=== PATIENT | male | born 1975 | race Caucasian/White ===

== ENCOUNTER → 2017-12-28 10:23 | Outpatient (CLI) | payer OTHER, SELFPAY ==
[2017-12-28 14:35] LABS: COMMENT (LAB VIEW ONLY) 129.17 mg/dL; Microalb ug/mg Crea 16.7 ug/mg Cr
== END ==
PROVIDERS: PCP Nurse Practitioner; Visit Provider Nurse Practitioner
DX: E11.9 Type 2 diabetes mellitus without complications (principal)
CPT/HCPCS: 82043; 82570

== ENCOUNTER → 2018-03-28 08:53 | Outpatient (BNVA) | payer OTHER, SELFPAY | PROVIDERS: PCP Nurse Practitioner; Visit Provider Psychiatry & Neurology Neurology | DX: G40.909 Epilepsy, unspecified, not intractable, without status epilepticus (principal); I10 Essential (primary) hypertension; E11.9 Type 2 diabetes mellitus without complications; Z79.84 Long term (current) use of oral hypoglycemic drugs | CPT/HCPCS: 99214 ==

== ENCOUNTER 2018-07-15 08:36 | Outpatient (CLI) | payer OTHER, SELFPAY ==
[2018-07-15 09:18] LABS: Abs Immature Grans 0.03 k/cumm (0.0-0.09); Absolute Basophil Count 0.05 k/cumm (0.0-0.2); Absolute Eosinophil Count 0.16 k/cumm (0.0-0.7); Absolute Lymphocyte Count 2.28 k/cumm (1.2-3.4); Absolute Neutrophil Count 4.81 k/cumm (1.2-6.7); Basophils % 0.6; HCT 40.3 % (40.0-50.0); HGB 14.1 g/dL (13.5-17.5); Immature Grans % 0.4; Lymphocytes % 28.8; Mean Corpuscular Hemoglobin 30.9 pg (27.0-33.0); Mean Corpuscular Volume 88.4 fL (80-95); Mean Platelet Volume 10.1 fL (8.0-11.0); Monocytes % 7.6; Neutrophils % 60.6; Platelet Count 232 x1000/uL (130-400); RBC 4.56 m/cumm (4.50-6.00); RBC Distribution Width 13.1 % (11.8-14.1); White Blood Cell Count 7.93 k/cumm (4.4-10.8)
[2018-07-15 10:17] LABS: ALT 33 U/L (12-78); AST 22 U/L (15-37); Albumin 4.4 g/dL (3.4-5.0); Alkaline Phosphatase 52 U/L (46-116); BUN 24 mg/dL (7-18); Bilirubin, Total 0.3 mg/dL (0.2-1.0); CREATININE 1.21 mg/dL (0.70-1.30); Calcium 9.3 mg/dL (8.5-10.1); Chloride 99 mmol/L (98-107); Glucose 134 mg/dL (70-100); Potassium 4.8 mmol/L (3.5-5.1); Sodium 138 mmol/L (136-145); Total Protein 7.3 g/dL (6.4-8.2)
[2018-07-15 14:29] LABS: Cholesterol 215 mg/dL (50-200); HDL Cholesterol 47 mg/dL (40-60); LDL CHOLESTEROL 126 mg/dL (<100); Triglyceride 169 mg/dL (30-150)
[2018-07-15 14:56] LABS: COMMENT (LAB VIEW ONLY) 177.71 mg/dL; Microalb ug/mg Crea 6.2 ug/mg Cr
== END 2018-07-15 08:56 ==
PROVIDERS: PCP Nurse Practitioner; Visit Provider Nurse Practitioner
DX: E11.40 Type 2 diabetes mellitus with diabetic neuropathy, unspecified (principal); E78.5 Hyperlipidemia, unspecified; I10 Essential (primary) hypertension
CPT/HCPCS: 36415; 80053; 80061; 83721; 82043; 82570; 85025

== ENCOUNTER → 2019-03-27 09:17 | Outpatient (BNVA) | payer OTHER, SELFPAY | PROVIDERS: PCP Nurse Practitioner; Referring Provider Nurse Practitioner; Visit Provider Psychiatry & Neurology Neurology | DX: G40.909 Epilepsy, unspecified, not intractable, without status epilepticus (principal); H54.7 Unspecified visual loss; E11.9 Type 2 diabetes mellitus without complications; Z79.84 Long term (current) use of oral hypoglycemic drugs; I10 Essential (primary) hypertension | CPT/HCPCS: 99213 ==

== ENCOUNTER 2020-01-12 01:57 | Outpatient (CLI) | payer OTHER, SELFPAY ==
[2020-01-12 08:23] LABS: Hemoglobin A1C 6.4 % (<5.7)
[2020-01-12 08:24] LABS: ALT 32 U/L (16-63); AST 15 U/L (15-37); Albumin 4.3 g/dL (3.4-5.0); Alkaline Phosphatase 43 U/L (46-116); Anion Gap 6.7 mmol/L (3-11); BUN 43 mg/dL (7-18); Bilirubin, Total 0.2 mg/dL (0.2-1.0); CO2 29.3 mmol/L (21.0-32.0); CREATININE 1.45 mg/dL (0.70-1.30); Calcium 9.3 mg/dL (8.5-10.1); Calculated LDL 105 mg/dL (<100); Chloride 99 mmol/L (98-107); Cholesterol 202 mg/dL (<200); Estimated GFR 52.63 (mL/min/1.73m2); Glucose 260 mg/dL (74-106); HDL Cholesterol 42 mg/dL (40-60); Potassium 4.6 mmol/L (3.5-5.1); Sodium 135 mmol/L (136-145); Total Protein 7.2 g/dL (6.4-8.2); Triglyceride 279 mg/dL (<150)
== END 2020-01-12 02:17 ==
PROVIDERS: PCP Nurse Practitioner; Visit Provider Student in an Organized Health Care Education/Training Program
DX: E11.9 Type 2 diabetes mellitus without complications (principal); E78.5 Hyperlipidemia, unspecified; E66.9 Obesity, unspecified; I10 Essential (primary) hypertension
CPT/HCPCS: 36415; 80053; 80061; 83036

== ENCOUNTER 2020-01-26 18:53 | Outpatient (REF) | payer OTHER, SELFPAY ==
[2020-01-26 22:04] LABS: COMMENT (LAB VIEW ONLY) 163.26 mg/dL
== END 2020-01-26 19:13 ==
LOC: LBN 18:53
PROVIDERS: PCP Nurse Practitioner; Visit Provider Student in an Organized Health Care Education/Training Program
DX: E11.9 Type 2 diabetes mellitus without complications (principal)
CPT/HCPCS: 82043; 82570

== ENCOUNTER → 2020-04-04 07:47 | Outpatient (BNVA) | payer OTHER, SELFPAY | PROVIDERS: PCP Nurse Practitioner; Referring Provider Nurse Practitioner; Visit Provider Psychiatry & Neurology Neurology | DX: G40.909 Epilepsy, unspecified, not intractable, without status epilepticus (principal) | CPT/HCPCS: 99213; 99441 ==

== ENCOUNTER 2021-01-24 03:02 | Outpatient (CLI) | payer OTHER, SELFPAY ==
[2021-01-24 08:23] LABS: HCT 36.7 % (40.0-50.0); HGB 12.3 g/dL (13.5-17.5); MCH 31.1 pg (27.0-33.0); MCHC 33.5 % (32.0-36.0); MCV 92.9 fL (80-95); MPV 9.8 fL (8.0-11.0); Platelet Count 233 10^3/uL (130-400); RBC 3.95 10^6/uL (4.36-5.78); RDW 13.1 % (11.8-14.1); RDW-SD 44.9 fL; WBC 8.02 10^3/uL (4.4-10.8)
[2021-01-24 09:48] LABS: COMMENT (LAB VIEW ONLY) 97.03 mg/dL; Microalb ug/mg Crea 15.9 ug/mg Cr
[2021-01-24 10:18] LABS: Calculated LDL 102 mg/dL (<100); Cholesterol 173 mg/dL (<200); HDL Cholesterol 49 mg/dL (40-60); TSH 2.09 uIU/mL (0.36-3.74); Triglyceride 113 mg/dL (<150); Vitamin B12 227 pg/mL (193-986)
[2021-01-24 14:38] LABS: ALT 28 U/L (16-63); AST 17 U/L (15-37); Albumin 4.2 g/dL (3.4-5.0); Alkaline Phosphatase 40 U/L (46-116); Anion Gap 11.6 mmol/L (3-11); BUN 30 mg/dL (7-18); Bilirubin, Total 0.1 mg/dL (0.2-1.0); CO2 25.4 mmol/L (21.0-32.0); CREATININE 1.3 mg/dL (0.70-1.30); Calcium 9.4 mg/dL (8.5-10.1); Chloride 104 mmol/L (98-107); Estimated GFR 59.43 (mL/min/1.73m2); Glucose 143 mg/dL (74-106); Potassium 5.4 mmol/L (3.5-5.1); Sodium 141 mmol/L (136-145); Total Protein 6.8 g/dL (6.4-8.2)
[2021-01-25 13:40] LABS: Oxcarbazepine Metabolite, S 33 mcg/mL (10 - 35)
== END 2021-01-24 03:03 | disposition home or self-care (01) ==
LOC: LBO 03:02
PROVIDERS: Internal Medicine; Psychiatry & Neurology Neurology; PCP Nurse Practitioner; Visit Provider Nurse Practitioner
DX: E11.9 Type 2 diabetes mellitus without complications (principal); E78.5 Hyperlipidemia, unspecified; E03.9 Hypothyroidism, unspecified; G40.909 Epilepsy, unspecified, not intractable, without status epilepticus; Z79.899 Other long term (current) drug therapy
CPT/HCPCS: 36415; 80053; 80061; 80183; 85027; 82043; 82570; 82607; 84443

== ENCOUNTER → 2021-03-20 08:57 | Outpatient (BNVA) | payer MEDICARE, SELFPAY | PROVIDERS: PCP Nurse Practitioner; Referring Provider Nurse Practitioner; Visit Provider Psychiatry & Neurology Neurology | DX: G40.909 Epilepsy, unspecified, not intractable, without status epilepticus (principal); G47.00 Insomnia, unspecified; G43.109 Migraine with aura, not intractable, without status migrainosus; G89.29 Other chronic pain | CPT/HCPCS: 99213 ==

== ENCOUNTER 2021-05-01 15:06 | Emergency (ER) | payer MEDICARE, SELFPAY ==
[2021-05-01] VITALS (27 sets, daily range): BP systolic 98–119; BP diastolic 52–60; PULSE 79–91; RESP 6–25; TEMP 36.7; O2SAT 93–97
--- NOTE | 2021-05-01 15:15 | RT.EKG_ITS ---
APPROVED REPORT Exam: Resting ECG Reason for Exam: CHEST PAIN Patient Location: E HR:86 bpm ECG Measurements Heart Rate 86 AXIS WA 161 P 20 QRSd 136 QRS 63 QT 370 T 44 QTc 444 Conclusion Sinus rhythm...normal P axis, V-rate 60- 99 Right bundle branch block...QRSd>120, terminal axis(90,270) ST elev, probable normal early repol pattern...ST elevation, age<55
[2021-05-01 15:56] LABS: Abs Immature Grans 0.06 10^3/uL (0.0-0.06); Absolute Basophil Count 0.05 10^3/uL (0.0-0.2); Absolute Eosinophil Count 0.09 10^3/uL (0.0-0.7); Absolute Lymphocyte Count 1.42 10^3/uL (1.2-3.4); Absolute Monocyte Count 0.45 10^3/uL (0.1-0.8); Absolute Neutrophil Count 4.76 10^3/uL (1.2-6.7); Basophils % 0.7; Eosinophils % 1.3; HCT 35.5 % (40.0-50.0); Immature Grans % 0.9; Lymphocytes % 20.8; MCH 30.6 pg (27.0-33.0); MCHC 33.8 % (32.0-36.0); MCV 90.6 fL (80-95); MPV 9.5 fL (8.0-11.0); Monocytes % 6.6; Neutrophils % 69.7; Nucleated RBC 0 %; Platelet Count 251 10^3/uL (130-400); RBC 3.92 10^6/uL (4.36-5.78); RDW-SD 42.5 fL; WBC 6.83 10^3/uL (4.4-10.8)
--- NOTE | 2021-05-01 15:59 | ED.GENADUL_ITS ---
Discharge Plan Disposition Patient Disposition: HOME Condition: Stable Discharge Details Clinical Impression: Paresthesia, Heart palpitations Primary Care Provider: Afshan Lobo ED Provider: Nitish Brown Home Meds and New Rx's Prescriptions: Continued mecobalamin (vitamin B12) 1,000 mcg tablet,chewable 1,000 mcg PO DAILY RF: 0 simvastatin 20 mg tablet 20 mg PO DAILY Qty: 90 RF: 3 metformin 1,000 mg tablet 1,000 mg PO BID Qty: 180 RF: 3 ibuprofen [Advil] 200 MG tablet 200 mg PO PRN RF: 0 lisinopril 10 mg tablet 10 mg PO DAILY Qty: 90 RF: 3 glipizide 10 mg tablet 10 mg PO DAILY Qty: 90 RF: 3 fenofibrate nanocrystallized 145 mg tablet 145 mg PO DAILY Qty: 90 RF: 3 oxcarbazepine 300 mg tablet 900 mg PO BID Qty: 540 RF: 3 sertraline 100 mg tablet 200 mg PO DAILY Qty: 180 RF: 3 Discharge Instructions Instructions: Heart Palpitations (ED) Additional Instructions: Please follow-up with your primary care physician in 1 to 2 days for reassessment Continue on your prescribed medication including your seizure medication Your lab test today are negative for acute abnormality Please have your creatinine rechecked by your primary care physician on Wednesday and your magnesium level followed by your doctor Hydrate yourself and drink eight 8 ounce glasses of water daily Discharge Data Discharge Date/Time-TO BE ENTERED AT DEPARTURE: 05/01/21 17:46 Medical Decision Making <JOSEF Lawton - Last Filed: 05/05/21 08:07> Patient appears well, he is alert and oriented with a nonfocal neurological exam, he does make his own medical decisions but mother is also in room this is a very to presentation and that had she been at her son's home, she would not have brought him to the emergency room for this He has underlying anxiety and she states that when bystanders are engaged with patient he typically has increase in anxiety Patient appears well, nonfocal neurological exam, has had normal CTs in the past of head, no current headache EKG we do not have comparison but does have a right bundle branch block, there is no chest pain associated with this and I see no indication to order troponin at this time Pending electrolyte and chemistry panel to return Will be done at home at that time should he have stable labs from and and reevaluation Patient with a creatinine of 1.7, increased from normal range, with elevated BUN I suspect dehydration Will be given 1 L of normal saline and 1 g of magnesium with a mag of 1.6 Patient signed out to Stephanie Talbert PA-C pending infusion Medical Records Medical records reviewed: Yes I reviewed the patient's medical records. Lab Data Lab results reviewed: Yes I reviewed the patient's lab results. <JOSEF Melendez - Last Filed: 05/01/21 17:20> I assumed care at this 45-year-old male from my colleague JOSEF Fam, please see her initial HPI and examination. At time of signout work-up has been completed and patient is awaiting his infusion of normal saline and magnesium, patient will likely be in the ER for 1-2 hours awaiting effusion signed out to me pending discharge status post effusion completion. I did personally evaluate the patient who is resting comfortably in room for lying in the house stretcher. He appears well, nontoxic. He reports that he feels well, back to baseline. Mother also reports that he appears to be at baseline. They have no additional questions or turns and are comfortable with discharge at this time. Standard discharge and return precautions were provided. They were encouraged to follow-up with their primary care provider. HPI <JOSEF Lawton - Last Filed: 05/05/21 08:07> General Mode of arrival: ambulatory . Date/Time Provider Initiated Documentation: 05/01/21 15:08 . Limitations to Documentation: no limitations . Information obtained by: patient . HPI Narrative: This 45-year-old gentleman with history of epilepsy, anemia, subclinical hypothyroidism, developmental delay presents today with report of some paresthesias to his occipital region of his scalp which has been going on for the past year and also a racing heart . Denies any chest pain or shortness of breath. Denies any strength or sensation change. Denies any fever or chills. Does report a small abrasion to his right fifth digit when shaving his head this morning. He states when he wakes up he always has some paresthesias to the occipital region of his head. His mother confirms that this is his baseline. Mother also states that patient typically becomes anxious when attention is drawn to his symptoms. 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 Occipital region. He subsequently developed a racing heartbeat . At this time he is feeling symptomatically improved. He has no additional complaints. He has not had a seizure today. He did have a seizure reportedly on , he has what sounds like partial seizure activity. Has never had tonic-clonic activity. He has not had any reported seizure activity today and he has been taking all medications as prescribed. Related Data Home Medications Medication Instructions Recorded Confirmed ibuprofen [Advil] 200 mg PO PRN 07/26/12 05/01/21 fenofibrate nanocrystallized 145 145 mg PO DAILY #90 tab-cap 06/24/20 05/01/21 mg tablet glipizide 10 mg tablet 10 mg PO DAILY #90 tab-cap 06/24/20 05/01/21 lisinopril 10 mg tablet 10 mg PO DAILY #90 tab 06/24/20 05/01/21 oxcarbazepine 300 mg tablet 900 mg PO BID #540 tab-cap 12/09/20 05/01/21 metformin 1,000 mg tablet 1,000 mg PO BID #180 tab-cap 01/28/21 05/01/21 simvastatin 20 mg tablet 20 mg PO DAILY #90 tab-cap 01/28/21 05/01/21 sertraline 100 mg tablet 200 mg PO DAILY #180 tab 03/04/21 05/01/21 mecobalamin (vitamin B12) 1,000 1,000 mcg PO DAILY 03/20/21 05/01/21 mcg chewable tablet Previous Rx's Medication Instructions Recorded fenofibrate nanocrystallized 145 145 mg PO DAILY #90 tab-cap 06/24/20 mg tablet glipizide 10 mg tablet 10 mg PO DAILY #90 tab-cap 06/24/20 lisinopril 10 mg tablet 10 mg PO DAILY #90 tab 06/24/20 oxcarbazepine 300 mg tablet 900 mg PO BID #540 tab-cap 12/09/20 metformin 1,000 mg tablet 1,000 mg PO BID #180 tab-cap 01/28/21 simvastatin 20 mg tablet 20 mg PO DAILY #90 tab-cap 01/28/21 sertraline 100 mg tablet 200 mg PO DAILY #180 tab 03/04/21 Allergies Allergy/AdvReac Type Severity Reaction Status Date / Time grass Allergy Unknown Uncoded 05/01/21 15:22 General Stated Complaint: GenMedical SHAUNA: 3 Review of Systems <JOSEF Lawton - Last Filed: 05/05/21 08:07> All systems reviewed & are unremarkable except as noted in HPI and below PFSH <JOSEF Lawton - Last Filed: 05/05/21 08:07> All Active Problems (Updated 05/01/21 @ 16:17 by JOSEF Lawton) Paresthesia (Acute) Heart palpitations (Acute) Chronic headache (Acute) Migraine headache with aura (Acute) Dental caries (Acute) Anemia (Chronic) Epilepsy (Chronic) Hyperlipidemia (Acute) Migraine (Acute 10/26/13) Subclinical hypothyroidism (Acute 09/30/12) Reduced visual acuity (Acute 05/20/11) Vision Impaired/Blind, 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, 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 Radial neuropathy (Acute 10/19/12) Obstructive sleep apnea syndrome (Acute 05/27/16) Obesity (Acute 05/20/11) Essential hypertension (Acute 08/19/12) Diabetes mellitus type 2 in nonobese (Chronic 08/19/12) Depressive disorder (Acute 05/20/11) Active Problem List Dental caries (Acute) Anemia (Chronic) Epilepsy (Chronic) Hyperlipidemia (Acute) Migraine (Acute 10/26/13) Subclinical hypothyroidism (Acute 09/30/12) Reduced visual acuity (Acute 05/20/11) Radial neuropathy (Acute 10/19/12) Obstructive sleep apnea syndrome (Acute 05/27/16) Obesity (Acute 05/20/11) Essential hypertension (Acute 08/19/12) Diabetes mellitus type 2 in nonobese (Chronic 08/19/12) Depressive disorder (Acute 05/20/11) Medical History Cognitive developmental delay Diabetes mellitus H/O prematurity Insomnia Surgical History No pertinent past surgical history Social History Smoking/Tobacco Use Status: Never Smoking risk assessment performed?: Yes Alcohol Intake: never Drug use: Never Substance use type: does not use Household members: none current occupation: Disabled. Pets and animals: Yes Pets and animals: cat(s) Seatbelt use: always Do you feel safe at home: Yes Do you feel safe in your relationship?: Yes Additional Social history: Lives on his own with close supervision by his parents. Likes to play video games. He has a pet cat. Exam <JOSEF Lawton - Last Filed: 05/05/21 08:07> Const General: cooperative, comfortable and no acute distress Orientation: alert and oriented x3 HENMT Other: Uvula midline, moist mucous membranes Eyes Pupils: PERRL Neck Other: No carotid bruit Resp Effort & Inspection: normal respiratory effort Auscultation: clear to auscultation bilaterally Cardio Rate: regular rate Rhythm: regular rhythm GI Inspection: normal to inspection Auscultation: normal bowel sounds Skin General skin exam: no rashes or lesions noted Neuro General: patient alert and patient oriented x3 Cranial Nerves: CN's II-XI intact bilaterally Other: GCS 15 Negative [id number], negative heel augustine, negative pronator drift Extrem Other: Distal pulses intact Course <JOSEF Lawton Last Filed: 05/05/21 08:07> Vital Signs Vital signs: Vital Signs Pulse 90 05/01/21 15:12 Respiratory Rate 22 05/01/21 15:12 Blood Pressure 117/55 L 05/01/21 15:12 Pulse Oximetry 97 05/01/21 15:12 Pulse 90 05/01/21 15:12 Respiratory Rate 25 H 05/01/21 15:19 Respiratory Effort 05/01/21 15:19 Respiratory Depth Normal 05/01/21 15:19 Respiratory Pattern Normal 05/01/21 15:19 Blood Pressure 117/55 L 05/01/21 15:12 Pulse Oximetry 97 05/01/21 15:12 Oxygen Delivery Method Room Air 05/01/21 15:12 Oxygen Flow Rate 0 05/01/21 15:12 Pain Level 7 05/01/21 15:12 Lab/Test Results Lab/Test Results: Laboratory Tests Range/Units 05/01/21 15:46 WBC (4.4-10.8) 10^3/uL 6.83 RBC (4.36-5.78) 10^6/uL 3.92 L Hgb (13.5-17.5) g/dL 12.0 L Hct (40.0-50.0) % 35.5 L MCV (80-95) fL 90.6 MCH (27.0-33.0) pg 30.6 MCHC (32.0-36.0) % 33.8 RDW (11.8-14.1) % 13.0 Plt Count (130-400) 10^3/uL 251 MPV (8.0-11.0) fL 9.5 Immature Gran % 0.9 Neutrophils % 69.7 Lymphocytes % 20.8 Monocytes % 6.6 Eosinophils % 1.3 Basophils % 0.7 Nucleated RBC % % 0 Absolute Neutrophils (1.2-6.7) 10^3/uL 4.76 Absolute Lymphocytes (1.2-3.4) 10^3/uL 1.42 Absolute Monocytes (0.1-0.8) 10^3/uL 0.45 Absolute Eosinophils (0.0-0.7) 10^3/uL 0.09 Absolute Basophils (0.0-0.2) 10^3/uL 0.05 Sign Out <JOSEF Lawton - Last Filed: 05/05/21 08:07> Sign Out Data: Sign Out Comment: pending mag and ns infusion Last updated by Orquidea Fam PA at 05/01/21 16:36
[2021-05-01 16:18] LABS: ALT 34 U/L (16-63); AST 20 U/L (15-37); Alkaline Phosphatase 41 U/L (46-116); Anion Gap 9.2 mmol/L (3-11); BUN 24 mg/dL (7-18); Bilirubin, Total 0.2 mg/dL (0.2-1.0); CO2 25.8 mmol/L (21.0-32.0); CREATININE 1.7 mg/dL (0.70-1.30); Calcium 8.5 mg/dL (8.5-10.1); Chloride 104 mmol/L (98-107); Estimated GFR 43.61 (mL/min/1.73m2); Glucose 203 mg/dL (74-106); Magnesium 1.6 mg/dL (1.8-2.4); Potassium 4.1 mmol/L (3.5-5.1); Sodium 139 mmol/L (136-145); TSH 1.56 uIU/mL (0.36-3.74); Total Protein 6.7 g/dL (6.4-8.2)
[2021-05-01] MEDS: Normal Saline 500 ML 1000 ML IV (16:34)
[2021-05-01] MEDS: MAGNESIUM SULFATE 1 GM/100 ML BAG IVPB (16:34)
== END 2021-05-01 17:46 | disposition home or self-care (01) ==
PROVIDERS: Physician Assistant; Emergency Provider Physician Assistant; PCP Nurse Practitioner
DX: R20.2 Paresthesia of skin (principal); R00.2 Palpitations; I45.10 Unspecified right bundle-branch block; R07.9 Chest pain, unspecified; E11.9 Type 2 diabetes mellitus without complications; R79.89 Other specified abnormal findings of blood chemistry
CPT/HCPCS: 36415; 36416; 80053; 82962; 93005; 96361; 96365; 99284; 83735; 84443; 85025; 93010; J3475

== ENCOUNTER 2021-05-12 04:19 | Outpatient (CLI) | payer MEDICARE, SELFPAY ==
[2021-05-12 07:57] LABS: Abs Immature Grans 0.07 10^3/uL (0.0-0.06); Absolute Basophil Count 0.08 10^3/uL (0.0-0.2); Absolute Eosinophil Count 0.22 10^3/uL (0.0-0.7); Absolute Lymphocyte Count 3.21 10^3/uL (1.2-3.4); Absolute Monocyte Count 0.55 10^3/uL (0.1-0.8); Absolute Neutrophil Count 5.43 10^3/uL (1.2-6.7); Basophils % 0.8; Eosinophils % 2.3; HCT 36.8 % (40.0-50.0); Immature Grans % 0.7; Lymphocytes % 33.6; MCH 30.3 pg (27.0-33.0); MCHC 32.6 % (32.0-36.0); MCV 92.9 fL (80-95); MPV 9.6 fL (8.0-11.0); Monocytes % 5.8; Neutrophils % 56.8; Nucleated RBC 0 %; Platelet Count 249 10^3/uL (130-400); RBC 3.96 10^6/uL (4.36-5.78); RDW 13.2 % (11.8-14.1); RDW-SD 45.1 fL; WBC 9.56 10^3/uL (4.4-10.8)
[2021-05-12 08:51] LABS: Total Iron Binding Capacity 431 ug/dL (250-450)
[2021-05-12 09:05] LABS: Ferritin 53 ng/mL (26-388)
== END 2021-05-12 04:20 | disposition home or self-care (01) ==
LOC: LBO 04:19
PROVIDERS: PCP Nurse Practitioner; Visit Provider Nurse Practitioner
DX: D64.9 Anemia, unspecified (principal)
CPT/HCPCS: 36415; 82728; 83550; 85025

== ENCOUNTER 2021-05-15 10:08 | Outpatient (REF) | payer MEDICARE, SELFPAY ==
[2021-05-15 15:15] LABS: Anion Gap 9.9 mmol/L (3-11); BUN 26 mg/dL (7-18); CO2 24.1 mmol/L (21.0-32.0); CREATININE 1.1 mg/dL (0.70-1.30); Calcium 8.9 mg/dL (8.5-10.1); Chloride 105 mmol/L (98-107); Glucose 81 mg/dL (74-106); Magnesium 1.3 mg/dL (1.8-2.4); Potassium 4.5 mmol/L (3.5-5.1); Sodium 139 mmol/L (136-145); Vitamin B12 261 pg/mL (193-986)
== END 2021-05-15 10:09 | disposition home or self-care (01) ==
LOC: LBN 10:08
PROVIDERS: PCP Nurse Practitioner; Visit Provider Nurse Practitioner
DX: D64.9 Anemia, unspecified (principal); R79.89 Other specified abnormal findings of blood chemistry; R20.0 Anesthesia of skin
CPT/HCPCS: 80048; 82607; 83735

== ENCOUNTER 2021-06-13 00:59 | Outpatient (CLI) | payer MEDICARE, SELFPAY ==
--- NOTE | 2021-06-13 07:36 | DI.US_ITS ---
APPROVED REPORT EXAM: Comprehensive 2D, Doppler, and color-flow Echocardiogram Patient Location: Out-Patient Registered Nurse Float Pool: Tamiko Torres RDCS (AE) Indications: RBBB,Palpitations Other Information Study Quality: Adequate Conclusion Normal left ventricular wall thickness and chamber size. Estimated ejection fraction is 60%. Wall m otion is normal Normal right ventricular size and systolic function Both atria are normal in size There is no structural or hemodynamically significant valvular disease Wall motion Left Ventricle The left ventricle is normal size. The left ventricular systolic function is normal. The left ventric ular ejection fraction is within the normal range. There is normal left ventricular wall thickness. T here is normal LV segmental wall motion. There is no ventricular septal defect visualized. LVEF is 59 %. Right Ventricle Right ventricle is grossly normal in size. Right ventricular systolic function is grossly normal. Atria The left atrium size is normal. The right atrium size is normal. The interatrial septum is intact wit h no evidence for an atrial septal defect. Aortic Valve The aortic valve is normal in structure. Aortic valve is trileaflet. There is no aortic valvular sten osis. No aortic regurgitation is present. Mitral Valve The mitral valve is normal in structure. No evidence of mitral valve stenosis. Trace mitral regurgita tion. Tricuspid Valve The tricuspid valve is normal in structure. There is no tricuspid valve stenosis. Trace tricuspid reg urgitation. Unable to assess PA pressure. Pulmonic Valve The pulmonary valve is normal in structure. There is no pulmonic valvular stenosis. There is no pulmo maria esther valvular regurgitation. Great Vessels The aortic root is normal in size. The ascending aorta is normal in size. Aortic arch is normal in ca liber. IVC is normal in size and collapses >50% with inspiration. Pericardium There is no pericardial effusion. 2D Dimensions IVSD d PLAX 1.00 cm M: 0.6-1.2 LV Vol A2C d MOD 97.4 mL LVPW d PLAX 0.96 cm M: 0.6 - 1.2 LV Vol A4C d MOD 115.7 mL LVID d PLAX 4.62 cm M: 4.2 - 5.8 LA vol/ BSA A2C s A-L 12.5 mL/m2 LVDs 2.90 cm M: 2.5 - 4.0 LA vol/ BSA A4C s A-L 20.5 mL/m2 Ao Root d 3.51 cm M: 3.1 - 3.7 LA Vol/ BSA Biplane s A-L 17.3 mL/m2 RA Area A4C 13.42 cm2 LA Area A4C s MOD 16.48 cm2 RA Vol/ BSA A4C s A-L 15.2 mL/m2 LA Area A2C s MOD 11.86 cm2 Ao Asc Diam d 3.39 cm M: 2.6 - 3.4 LV EF A4C MOD 59.0 % LV EF Teichholz 65.9 % LV EF A2C MOD 59.6 % LVEF (Ruiz's) 59.04 % M: 52 - 72 LV EF Biplane MOD 59.0 % LV Volume 78.95 mL M: 62 - 150 SV 62.98 mL LV Volume Index 37.95 mL/m2 M: 34 - 74 SV Index 30.24 mL/m2 LV Vol Biplane MOD 106.7 mL FS 36.15 % M-Mode TAPSE 2.37 cm (M/F) >1.7 LV Diastology MV E' medial 0.110 (>0.07 m/s) E/A Ratio 1.2 LV E/e MED 7.85 (<14) MV E Vmax 0.86 (0.4-1.3 m/s) MV E' lateral 0.133 (>0.1 m/s) MV A Vmax 0.70 (0.4-1.3 m/s) LV E/e LAT 6.45 (<14) MV E/A Ratio 1.21 MV E/E' medial 7.86 MV E/E' lateral 6.47 Aortic Valve LVOT Area 3.67 cm2 AoV Area Vmax 3.56 cm2 LVOT Vmax 1.16 m/s AoV Area/ BSA (Vmax) 1.71 cm2/m2 LVOT Mean Manpreet. 0.71 m/s ALEXIS Mean Manpreet. 2.93 cm2 LVOT Peak Grad 5.4 mmHg ALEXIS Mean Manpreet. Index 1.41 cm2/m2 LVOT Mean Grad 2.5 mmHg LVOT VTI 0.237 m LVOT Diam s 2.15 cm AoV Vmax 1.19 m/s Velocity Ratio 0.97 AoV Mean Manpreet. 0.89 m/s AoV Peak Grad 5.7 mmHg LVOT SV 86.81 mL AoV Mean Grad 3.5 mmHg AoV VTI 0.243 m AoV Area VTI 3.58 cm2 AoV Area/ BSA (VTI) 1.72 cm/m2 Mitral Valve MV DT 174 (160-240 msec) MV PHT 50 msec MV Area PHT 4.36 cm2 MV VTI 0.257 m MV Area VTI 3.38 (4.0-6.0 cm2) Pulmonary Valve PV Vmax 1.04 (0.5-1.5 m/s) RVOT Peak Gr. 1.64 mmHg PV Peak Grad 4.3 mmHg RVOT Mean Gr. 0.80 mmHg PV Mean Grad 2.3 mmHg RVOT VTI 0.133 m PV VTI 0.218 m RVOT Vmax 0.64 m/s
== END 2021-06-13 01:19 ==
PROVIDERS: PCP Nurse Practitioner; Visit Provider Nurse Practitioner
DX: I45.10 Unspecified right bundle-branch block (principal); R00.2 Palpitations
CPT/HCPCS: 93306

== ENCOUNTER → 2021-10-02 09:56 | Outpatient (BNVA) | payer MEDICARE, SELFPAY | PROVIDERS: PCP Nurse Practitioner; Referring Provider Nurse Practitioner; Visit Provider Psychiatry & Neurology Neurology | DX: M79.604 Pain in right leg (principal); M79.605 Pain in left leg; G43.109 Migraine with aura, not intractable, without status migrainosus; G47.00 Insomnia, unspecified; G40.909 Epilepsy, unspecified, not intractable, without status epilepticus | CPT/HCPCS: 99214 ==

== ENCOUNTER 2022-02-13 01:45 | Outpatient (CLI) | payer MEDICARE, SELFPAY ==
[2022-02-13 07:34] LABS: Abs Immature Grans 0.06 10^3/uL (0.0-0.06); Absolute Basophil Count 0.08 10^3/uL (0.0-0.2); Absolute Eosinophil Count 0.21 10^3/uL (0.0-0.7); Absolute Lymphocyte Count 2.84 10^3/uL (1.2-3.4); Absolute Monocyte Count 0.74 10^3/uL (0.1-0.8); Absolute Neutrophil Count 6.65 10^3/uL (1.2-6.7); Basophils % 0.8; HCT 34.5 % (40.0-50.0); HGB 11.1 g/dL (13.5-17.5); Immature Grans % 0.6; Lymphocytes % 26.8; MCH 27.7 pg (27.0-33.0); MCHC 32.2 % (32.0-36.0); MCV 86 fL (80-95); MPV 9.7 fL (8.0-11.0); Neutrophils % 62.8; Platelet Count 288 10^3/uL (130-400); RBC 4.01 10^6/uL (4.36-5.78); RDW 12.7 % (11.8-14.1); RDW-SD 39.8 fL; WBC 10.58 10^3/uL (4.4-10.8)
[2022-02-13 09:09] LABS: Ferritin 12 ng/mL (26-388); Magnesium 1.3 mg/dL (1.8-2.4); Vitamin B12 662 pg/mL (193-986)
== END 2022-02-13 01:46 | disposition home or self-care (01) ==
LOC: LBO 01:46
PROVIDERS: Absent Provider Nurse Practitioner; PCP Nurse Practitioner; Referring Provider Nurse Practitioner; Visit Provider Nurse Practitioner
DX: D64.9 Anemia, unspecified (principal); E53.8 Deficiency of other specified B group vitamins; R79.0 Abnormal level of blood mineral
CPT/HCPCS: 36415; 82607; 82728; 83735; 85025

== ENCOUNTER 2022-05-11 03:06 | Outpatient (CLI) | payer MEDICARE, SELFPAY ==
[2022-05-11 08:36] LABS: ALT 22 U/L (16-63); AST 19 U/L (15-37); Albumin 4.2 g/dL (3.4-5.0); Alkaline Phosphatase 44 U/L (46-116); Anion Gap 7.2 mmol/L (3-11); BUN 25 mg/dL (7-18); Bilirubin, Total 0.1 mg/dL (0.2-1.0); CO2 30.8 mmol/L (21.0-32.0); CREATININE 1.3 mg/dL (0.70-1.30); Calcium 9.2 mg/dL (8.5-10.1); Calculated LDL 128 mg/dL (<100); Chloride 107 mmol/L (98-107); Cholesterol 217 mg/dL (<200); Estimated GFR 68.19 (mL/min/1.73m2); Glucose 70 mg/dL (74-106); HDL Cholesterol 61 mg/dL (40-60); Potassium 4.4 mmol/L (3.5-5.1); Sodium 145 mmol/L (136-145); Total Protein 7.3 g/dL (6.4-8.2); Triglyceride 140 mg/dL (<150)
== END 2022-05-11 03:07 | disposition home or self-care (01) ==
LOC: LBO 03:06
PROVIDERS: PCP Nurse Practitioner; Referring Provider Nurse Practitioner; Visit Provider Nurse Practitioner
DX: E11.69 Type 2 diabetes mellitus with other specified complication (principal); E66.9 Obesity, unspecified; E78.5 Hyperlipidemia, unspecified
CPT/HCPCS: 36415; 80053; 80061

== ENCOUNTER → 2022-12-07 08:02 | Outpatient (BNVA) | payer MEDICARE, SELFPAY | PROVIDERS: PCP Nurse Practitioner; Visit Provider Psychiatry & Neurology Neurology | DX: G40.909 Epilepsy, unspecified, not intractable, without status epilepticus (principal); G47.00 Insomnia, unspecified; G43.109 Migraine with aura, not intractable, without status migrainosus; G43.009 Migraine without aura, not intractable, without status migrainosus; I10 Essential (primary) hypertension; E11.9 Type 2 diabetes mellitus without complications | CPT/HCPCS: 99214 ==

== ENCOUNTER 2023-04-16 03:02 | Outpatient (CLI) | payer MEDICARE, SELFPAY ==
[2023-04-16 09:28] LABS: TSH (W/Ref FT4) 3.16 uIU/mL (0.36-3.74); Vitamin B12 571 pg/mL (193-986)
[2023-04-16 09:29] LABS: Vitamin D 25 Total 30.3 ng/mL (30-100)
== END 2023-04-16 03:03 | disposition home or self-care (01) ==
LOC: LBO 03:02
PROVIDERS: PCP Nurse Practitioner; Visit Provider Registered Nurse
DX: F33.0 Major depressive disorder, recurrent, mild (principal)
CPT/HCPCS: 36415; 82306; 82607; 84443

== ENCOUNTER → 2023-09-23 09:05 | Outpatient (BNVA) | payer MEDICARE, SELFPAY | PROVIDERS: PCP Nurse Practitioner; Referring Provider Nurse Practitioner; Visit Provider Psychiatry & Neurology Neurology | DX: G47.00 Insomnia, unspecified (principal); G43.109 Migraine with aura, not intractable, without status migrainosus; G89.29 Other chronic pain; G40.909 Epilepsy, unspecified, not intractable, without status epilepticus | CPT/HCPCS: 99213 ==

== ENCOUNTER 2023-11-19 01:19 | Outpatient (CLI) | payer MEDICARE, SELFPAY ==
[2023-11-19 09:40] LABS: Abs Immature Grans 0.07 10^3/uL (0.0-0.06); Absolute Basophil Count 0.08 10^3/uL (0.0-0.2); Absolute Eosinophil Count 0.15 10^3/uL (0.0-0.7); Absolute Lymphocyte Count 2.42 10^3/uL (1.2-3.4); Absolute Neutrophil Count 4.81 10^3/uL (1.2-6.7); Eosinophils % 1.9 %; HCT 40.9 % (40.0-50.0); HGB 13.5 g/dL (13.5-17.5); Immature Grans % 0.9 %; Lymphocytes % 30.1 %; MCH 30.1 pg (27.0-33.0); MCV 91 fL (80-95); MPV 9.9 fL (8.0-11.0); Monocytes % 6.2 %; Neutrophils % 59.9 %; Platelet Count 230 10^3/uL (130-400); RBC 4.48 10^6/uL (4.36-5.78); RDW 13.9 % (11.8-14.1); RDW-SD 47.2 fL; WBC 8.03 10^3/uL (4.4-10.8)
[2023-11-19 10:35] LABS: ALT 30 U/L (16-63); AST 19 U/L (15-37); Albumin 4.3 g/dL (3.4-5.0); Alkaline Phosphatase 48 U/L (46-116); Anion Gap 9.8 mmol/L (3-11); BUN 35 mg/dL (7-18); Bilirubin, Total 0.27 mg/dL (0.2-1.0); CO2 27.2 mmol/L (21.0-32.0); CREATININE 1.5 mg/dL (0.70-1.30); Calcium 9.8 mg/dL (8.5-10.1); Calculated LDL 139 mg/dL (<100); Chloride 104 mmol/L (98-107); Cholesterol 227 mg/dL (<200); Estimated GFR 56.72 (mL/min/1.73m2); Ferritin 22 ng/mL (26-388); Glucose 114 mg/dL (74-106); HDL Cholesterol 63 mg/dL (40-60); Potassium 4.6 mmol/L (3.5-5.1); Sodium 141 mmol/L (136-145); TSH (W/Ref FT4) 2.35 uIU/mL (0.36-3.74); Total Protein 7.3 g/dL (6.4-8.2); Triglyceride 125 mg/dL (<150); Vitamin B12 953 pg/mL (193-986)
== END 2023-11-19 01:20 | disposition home or self-care (01) ==
LOC: LBO 01:19
PROVIDERS: Student in an Organized Health Care Education/Training Program; PCP Nurse Practitioner; Visit Provider Nurse Practitioner
DX: E11.69 Type 2 diabetes mellitus with other specified complication (principal); E66.9 Obesity, unspecified; E78.5 Hyperlipidemia, unspecified; I10 Essential (primary) hypertension; D64.9 Anemia, unspecified; R79.0 Abnormal level of blood mineral; Z79.899 Other long term (current) drug therapy
CPT/HCPCS: 36415; 80053; 80061; 82607; 82728; 84443; 85025

== ENCOUNTER 2024-12-22 14:08 | Outpatient (CLI) | payer MEDICARE, MEDICAID, SELFPAY ==
[2024-12-22 08:39] LABS: Abs Immature Grans 0.06 10^3/uL (0.0-0.06); HCT 40.6 % (40.0-50.0); HGB 13.7 g/dL (13.5-17.5); Immature Grans % 0.7 %; MCH 30.3 pg (27.0-33.0); MCHC 33.7 % (32.0-36.0); MCV 90 fL (80-95); MPV 9.8 fL (8.0-11.0); Platelet Count 220 10^3/uL (130-400); RBC 4.52 10^6/uL (4.36-5.78); RDW 13.3 % (11.8-14.1); RDW-SD 43.6 fL; WBC 8.37 10^3/uL (4.4-10.8)
[2024-12-22 08:40] LABS: Glucose >=1000 mg/dL (Negative)
[2024-12-22 08:55] LABS: C & S Indicated? No; RBC 0-2 HPF (0-2); WBC 0-2 HPF (0-5)
[2024-12-22 09:28] LABS: ALT 37 U/L (16-63); AST 24 U/L (15-37); Albumin 4.3 g/dL (3.4-5.0); Alkaline Phosphatase 55 U/L (46-116); Anion Gap 12.4 mmol/L (3-11); BUN 27 mg/dL (7-18); Bilirubin, Total 0.3 mg/dL (0.2-1.0); CO2 26.6 mmol/L (21.0-32.0); Calcium 9.7 mg/dL (8.5-10.1); Chloride 103 mmol/L (98-107); Cholesterol 238 mg/dL (<200); Estimated GFR 73.67 (mL/min/1.73m2); Glucose 111 mg/dL (74-106); HDL Cholesterol 41 mg/dL (>or=40); Potassium 4.6 mmol/L (3.5-5.1); Sodium 142 mmol/L (136-145); TSH (W/Ref FT4) 3.37 uIU/mL (0.36-3.74); Total Protein 7.3 g/dL (6.4-8.2); Triglyceride 403 mg/dL (<150)
[2024-12-22 09:50] LABS: LDL CHOLESTEROL 115 mg/dL (<100)
[2024-12-22 18:49] LABS: PSA, Screening 1.3 ng/mL (<=3.5)
== END 2024-12-22 14:09 | disposition home or self-care (01) ==
LOC: LBO 14:09
PROVIDERS: PCP Nurse Practitioner; Visit Provider Family Medicine
DX: E66.9 Obesity, unspecified (principal); E11.69 Type 2 diabetes mellitus with other specified complication; E11.9 Type 2 diabetes mellitus without complications; N18.30 Chronic kidney disease, stage 3 unspecified; E78.5 Hyperlipidemia, unspecified; Z13.220 Encounter for screening for lipoid disorders; Z12.5 Encounter for screening for malignant neoplasm of prostate; R53.83 Other fatigue
CPT/HCPCS: 36415; 80053; 80061; 83721; 84153; 81003; 81015; 84443; 85025

== ENCOUNTER → 2025-01-25 08:35 | Outpatient (BNVA) | payer MEDICARE, MEDICAID, SELFPAY | PROVIDERS: PCP Nurse Practitioner; Visit Provider Psychiatry & Neurology Neurology | DX: G40.909 Epilepsy, unspecified, not intractable, without status epilepticus (principal); G43.109 Migraine with aura, not intractable, without status migrainosus; G47.00 Insomnia, unspecified; G89.29 Other chronic pain; E11.59 Type 2 diabetes mellitus with other circulatory complications; I10 Essential (primary) hypertension | CPT/HCPCS: 99214 ==